=== PATIENT | male | born 1950 | race Caucasian/White ===

== ENCOUNTER → 2019-11-21 | Outpatient (CLI) | payer MEDICARE ==
[~2019-11-21] MED LIST: ALEVE220 MG PO; AMLODIPINE BESY10 MG PO; ASPIR 8181 MG PO; BYSTOLIC 5 MG5 M1 PO; CATAPRES0.2 MG PO; CHLORTHALIDONE25 MG PO; COREG25 MG PO; FISH OIL 1,001000 M2 PO; HYDROCODONE-APA1 TA1 PO; NIFEDICAL XL30 MG PO; OMEGA-31000 M1 PO; PERCOCET PO; SIMVASTATIN40 MG PO; XARELTO10 MG PO; ZESTRIL40 MG PO
== END ==
LOC: SJCVC 13:05 → SJCVCIMAG 15:50
DX: R00.1 Bradycardia, unspecified (principal); I11.0 Hypertensive heart disease with heart failure; I50.32 Chronic diastolic (congestive) heart failure; I48.0 Paroxysmal atrial fibrillation; E78.5 Hyperlipidemia, unspecified; G47.33 Obstructive sleep apnea (adult) (pediatric); C18.9 Malignant neoplasm of colon, unspecified; Z79.899 Other long term (current) drug therapy; Z87.891 Personal history of nicotine dependence

== ENCOUNTER → 2020-05-22 | Outpatient (CLI) | payer MEDICARE | LOC: SJCVC 12:46 | PROVIDERS: ATTEND Internal Medicine | DX: R94.31 Abnormal electrocardiogram [ECG] [EKG] (principal); I11.0 Hypertensive heart disease with heart failure; I50.32 Chronic diastolic (congestive) heart failure; I48.0 Paroxysmal atrial fibrillation; E78.5 Hyperlipidemia, unspecified; G47.33 Obstructive sleep apnea (adult) (pediatric); C18.9 Malignant neoplasm of colon, unspecified; Z79.899 Other long term (current) drug therapy; Z87.891 Personal history of nicotine dependence ==

== ENCOUNTER → 2021-06-03 | Outpatient (CLI) | payer MEDICARE | LOC: SJCVC 12:59 | PROVIDERS: ATTEND Internal Medicine | DX: I11.0 Hypertensive heart disease with heart failure (principal); I50.32 Chronic diastolic (congestive) heart failure; I48.0 Paroxysmal atrial fibrillation; E78.5 Hyperlipidemia, unspecified; G47.33 Obstructive sleep apnea (adult) (pediatric); C18.9 Malignant neoplasm of colon, unspecified; Z79.899 Other long term (current) drug therapy; Z87.891 Personal history of nicotine dependence ==